=== PATIENT | female | born 1970 | race Caucasian/White ===

== ENCOUNTER 2017-02-01 17:03 | Emergency (ER) | payer OTHER ==
[~2017-02-01 17:03] MED LIST: ALBUTEROL0.63 MG/3 INH; CHILDRENS CHEWA81 MG PO; CYMBALTA30 MG PO; DESYREL50 MG PO; FLONASE 0.05% N16 GM; LEVAQUIN750 MG PO; LEVOCETIRIZINE D5 MG PO; LEXAPRO20 MG PO; MOTRIN600 MG PO; NEURONTIN800 MG PO; NICODERM 14MG PA1 EA TD; OMEPRAZOLE40 MG PO; PLAQUENIL200 MG PO; TYLENOL325 M1 PO
[2017-02-01 17:35] LABS: BASO % 0.3 % (0.1-1.2); EOS # 0.1 10_X3_uL (0.0-0.4); EOS % 0.4 % (0.7-5.8); GRAN # 9.8 10_X3_uL (1.6-6.1); GRAN % 83.2 % (34.0-71.1); HEMATOCRIT 40.6 % (34-45); HEMOGLOBIN 13.8 g/dL (11.2-15.7); LYMPH # 1.5 10_X3_uL (1.2-3.7); LYMPH % 12.6 % (19.3-51.7); MEAN CORPUSCULAR HEMOGLOBIN 31.1 pg (27.0-33.0); MEAN CORPUSCULAR VOLUME 91.4 fL (79-95); MEAN PLATELET VOLUME 10.2 fl (7.5-11.5); MONO # 0.4 10_X3_uL (0.2-0.9); MONO % 3.5 % (4.7-12.5); PLATELET COUNT 360 x10_3/uL (182-369); RED BLOOD COUNT 4.44 x10_6/uL (3.9-5.2); RED CELL DISTRIBUTION WIDTH 13.6 % (11.7-14.4); WHITE BLOOD COUNT 11.8 x10_3/uL (4.0-10.0)
[2017-02-01 18:09] LABS: ACETAMINOPHEN < 15.0 ug/ml (10.0-30.0); BLOOD UREA NITROGEN 6 mg/dL (7-18); CALCIUM 8.4 mg/dL (8.7-10.7); CARBON DIOXIDE 22 mmol/L (21-32); CREATININE 0.6 mg/dL (0.6-1.3); ETHYL ALCOHOL < 10 mg/dl; GLUCOSE,RANDOM 144 mg/dL (70-99); POTASSIUM 4.3 mmol/L (3.5-5.1); SODIUM 137 mmol/L (136-145)
== END 2017-02-01 19:35 | disposition short-term general hospital (02) ==
LOC: ER 17:03
PROVIDERS: General Practice
DX: T65.91XA Toxic effect of unspecified substance, accidental (unintentional), initial encounter (principal); I45.81 Long QT syndrome; F17.210 Nicotine dependence, cigarettes, uncomplicated; Z88.8 Allergy status to other drugs, medicaments and biological substances
CPT/HCPCS: 36415; 36600; 70450; 80048; 80307; 81025; 82803; 82962; 85025; 93005; 96372; 99070; 99283-25; G0480

== ENCOUNTER 2017-02-14 13:17 | Emergency (ER) | payer OTHER ==
[2017-02-14 13:48] LABS: URINE BILIRUBIN NEGATIVE (NEGATIVE); URINE BLOOD 3+ (NEGATIVE); URINE GLUCOSE (UA) NORMAL (NORMAL); URINE KETONE NEGATIVE (NEGATIVE); URINE LEUKOCYTE ESTERASE 2+ (NEGATIVE); URINE NITRATE POSITIVE (NEGATIVE); URINE PROTEIN 1+ (NEGATIVE); UROBILINOGEN NORMAL mg/dL (<1.0)
[2017-02-14 14:05] LABS: URINE BACTERIA 1+ (NONE SEEN); URINE RBC 0-5 /[HPF] (0-2); URINE SQUAMOUS EPITHELIAL CELL 0-10 /[HPF] (NONE SEEN); URINE WBC TNTC /[HPF] (0-5)
== END 2017-02-14 15:06 | disposition home or self-care (01) ==
LOC: ER 13:17
PROVIDERS: Emergency Medicine
DX: N30.90 Cystitis, unspecified without hematuria (principal); R10.30 Lower abdominal pain, unspecified; R10.2 Pelvic and perineal pain; J30.2 Other seasonal allergic rhinitis; M06.9 Rheumatoid arthritis, unspecified; F17.210 Nicotine dependence, cigarettes, uncomplicated; Z79.899 Other long term (current) drug therapy
CPT/HCPCS: 81001; 87086; 87186; 99070; 99283